=== PATIENT | male | born 1970 | race Caucasian/White ===

== ENCOUNTER 2019-11-30 12:51 | Emergency (ER) | payer BC ==
[2019-11-30 13:07] LABS: Glucose,Whole Blood 122 mg/dL (75-99)
[2019-11-30] MEDS ORDERED: SODIUM CHLORIDE 0.9% 1,000 ML IV STA (13:28)
--- NOTE | 2019-11-30 13:59 | CT ---
EXAMINATION TYPE: CT brain wo con for TPA DATE OF EXAM: 11/30/2019 COMPARISON: None HISTORY: 49-year-old male neurologic deficits, acute stroke suspected, CODE STROKE TECHNIQUE: Examination was done in axial plane without intravenous contrast. Coronal and sagittal r econstructions performed. CT DLP: 1099.4 mGycm Automated exposure control for dose reduction was used. FINDINGS: There is no evidence of acute intracranial hemorrhage, acute ischemic changes, mass, mass-effect, or extra-axial fluid collection. There is no effacement of cerebral sulci or basal subarachnoid cister ns. There is no hydrocephalus. There is no midline shift. Grace-white matter distinction is preserv ed. Paranasal sinuses and mastoid air cells well pneumatized. Orbits and globes are intact. IMPRESSION: No acute intracranial abnormality seen.
--- NOTE | 2019-11-30 14:04 | ED ---
General Adult HPI - General Chief complaint: Dizziness Stated complaint: dizzy, seeing double, naseous Time Seen by Provider: 11/30/19 13:22 Source: patient, RN notes reviewed, old records reviewed Mode of arrival: wheelchair Limitations: no limitations - History of Present Illness Initial comments: 49-year-old male presenting with sudden onsetthe patient, dizziness. Patient was at work prior to arrival. He suddenly developed double vision, dizziness and gait instability. He denied focal numbness or weakness. No headache. Patient reports a frontal headache for the past 2 days but this had resolved today without specific treatment. No history of TIA or CVA. No history of hypertension. Patient is otherwise healthy. Denies extremity weakness. Denies chest pain. Denies abdominal pain. Denies numbness. No slurred speech. - Related Data Home Medications Medication Instructions Recorded Confirmed No Known Home Medications 11/30/19 11/30/19 Allergies Allergy/AdvReac Type Severity Reaction Status Date / Time No Known Allergies Allergy Verified 11/30/19 14:45 Review of Systems ROS Statement: Those systems with pertinent positive or pertinent negative responses have been documented in the HPI. ROS Other: All systems not noted in ROS Statement are negative. Past Medical History Past Medical History: No Reported History History of Any Multi-Drug Resistant Organisms: None Reported Past Surgical History: Cholecystectomy Past Psychological History: No Psychological Hx Reported Smoking Status: Current some day smoker Past Alcohol Use History: Rare Past Drug Use History: None Reported General Exam Limitations: no limitations General appearance: alert, in no apparent distress Head exam: Present: atraumatic, normocephalic Eye exam: Present: normal appearance, PERRL, EOMI, nystagmus (Mild horizontal nystagmus) ENT exam: Present: normal exam Neck exam: Present: normal inspection. Absent: tenderness, meningismus Respiratory exam: Present: normal lung sounds bilaterally. Absent: respiratory distress, wheezes Cardiovascular Exam: Present: regular rate, normal rhythm GI/Abdominal exam: Present: soft. Absent: distended, tenderness, guarding Extremities exam: Present: normal inspection, normal capillary refill Back exam: Present: normal inspection Neurological exam: Present: alert, motor sensory deficit (Patient has left upper and left lower extremity ataxia, he has normal extraocular motions with double vision on the lateral visual field testing bilaterally.), other (Finger to nose ataxia on the left) Psychiatric exam: Present: normal affect, normal mood Skin exam: Present: warm, dry, intact. Absent: cyanosis, diaphoretic Course Vital Signs 11/30/19 11/30/19 11/30/19 13:01 13:30 13:45 Temperature 97.7 F 97.7 F 97.6 F Pulse Rate 71 80 67 Respiratory 20 17 19 Rate Blood Pressure 165/94 141/93 142/98 O2 Sat by Pulse 97 98 97 Oximetry 11/30/19 11/30/19 14:00 14:15 Temperature 97.8 F Pulse Rate 80 Respiratory 17 Rate Blood Pressure 135/95 139/91 O2 Sat by Pulse 97 Oximetry - Reevaluation(s) Reevaluation #1: 11/30/19 1340 Case discussed with stroke neurologist Dr. Del Toro , CTs have been reviewed, recommends IV fluid and aspirin and recommends transfer to [facility]. EKG Findings - EKG Comments: EKG Findings:: EKG: Normal sinus rhythm, rate 65, AK interval 144, QRS duration 76, QTC 391, T-wave inversion in lead [address] segment elevation Medical Decision Making - Medical Decision Making 49-year-old male presenting with sudden onset of her vision, dizziness, ataxia on the left. He has a mild horizontal nystagmus. He has ataxia in both the left leg and the left upper extremity. CT is performed which is negative for intracranial hemorrhage. Has a normal CBC, normal electrolytes. His EKG is normal sinus rhythm. Chest x-ray negative for focal pneumonia or acute findings. CT angiography is pending, images have been reviewed by stroke interventionalist Dr. Del Toro. CT angiography negative for acute occlusion or significant stenosis, no aneurysm. There is no neurology coverage at this institution, patient will require further evaluation and treatment by neurology. Patient agreeable with transfer, ER accepting physician at [facility] is Dr. Boone - Lab Data Result diagrams: 11/30/19 13:24 11/30/19 13:24 Lab Results 11/30/19 11/30/19 11/30/19 Range/Units 13:05 13:24 13:24 WBC 10.9 H (3.8-10.6) k/uL RBC 5.38 (4.30-5.90) m/uL Hgb 16.1 (13.0-17.5) gm/dL Hct 47.0 (39.0-53.0) % MCV 87.2 (80.0-100.0) fL MCH 30.0 (25.0-35.0) pg MCHC 34.4 (31.0-37.0) g/dL RDW 12.7 (11.5-15.5) % Plt Count 267 (150-450) k/uL Neutrophils % 79 % Lymphocytes % 15 % Monocytes % 5 % Eosinophils % 0 % Basophils % 0 % Neutrophils # 8.6 H (1.3-7.7) k/uL Lymphocytes # 1.7 (1.0-4.8) k/uL Monocytes # 0.5 (0-1.0) k/uL Eosinophils # 0.0 (0-0.7) k/uL Basophils # 0.1 (0-0.2) k/uL PT (9.0-12.0) sec INR (<1.2) APTT (22.0-30.0) sec Sodium 138 (137-145) mmol/L Potassium 4.3 (3.5-5.1) mmol/L Chloride 103 (98-107) mmol/L Carbon Dioxide 25 (22-30) mmol/L Anion Gap 10 mmol/L BUN 12 (9-20) mg/dL Creatinine 0.85 (0.66-1.25) mg/dL Est GFR (CKD-EPI)AfAm >90 (>60 ml/min/1.73 sqM) Est GFR (CKD-EPI)NonAf >90 (>60 ml/min/1.73 sqM) Glucose 115 H (74-99) mg/dL POC Glucose (mg/dL) 122 H (75-99) mg/dL POC Glu [employer] BAILEE Erick Smith Calcium 9.7 (8.4-10.2) mg/dL Total Bilirubin 0.8 (0.2-1.3) mg/dL AST 27 (17-59) U/L ALT 29 (4-49) U/L Alkaline Phosphatase 62 (38-126) U/L Total Creatine Kinase (55-170) U/L CK-MB (CK-2) (0.0-2.4) ng/mL CK-MB (CK-2) Rel Index Troponin I (0.000-0.034) ng/mL Total Protein 8.0 (6.3-8.2) g/dL Albumin 4.7 (3.5-5.0) g/dL 11/30/19 11/30/19 Range/Units 13:24 13:24 WBC (3.8-10.6) k/uL RBC (4.30-5.90) m/uL Hgb (13.0-17.5) gm/dL Hct (39.0-53.0) % MCV (80.0-100.0) fL MCH (25.0-35.0) pg MCHC (31.0-37.0) g/dL RDW (11.5-15.5) % Plt Count (150-450) k/uL Neutrophils % % Lymphocytes % % Monocytes % % Eosinophils % % Basophils % % Neutrophils # (1.3-7.7) k/uL Lymphocytes # (1.0-4.8) k/uL Monocytes # (0-1.0) k/uL Eosinophils # (0-0.7) k/uL Basophils # (0-0.2) k/uL PT 10.8 (9.0-12.0) sec INR 1.0 (<1.2) APTT 25.9 (22.0-30.0) sec Sodium (137-145) mmol/L Potassium (3.5-5.1) mmol/L Chloride (98-107) mmol/L Carbon Dioxide (22-30) mmol/L Anion Gap mmol/L BUN (9-20) mg/dL Creatinine (0.66-1.25) mg/dL Est GFR (CKD-EPI)AfAm (>60 ml/min/1.73 sqM) Est GFR (CKD-EPI)NonAf (>60 ml/min/1.73 sqM) Glucose (74-99) mg/dL POC Glucose (mg/dL) (75-99) mg/dL POC Glu [employer] ID Calcium (8.4-10.2) mg/dL Total Bilirubin (0.2-1.3) mg/dL AST (17-59) U/L ALT (4-49) U/L Alkaline Phosphatase (38-126) U/L Total Creatine Kinase 172 H (55-170) U/L CK-MB (CK-2) 2.5 H (0.0-2.4) ng/mL CK-MB (CK-2) Rel Index 1.5 Troponin I <0.012 (0.000-0.034) ng/mL Total Protein (6.3-8.2) g/dL Albumin (3.5-5.0) g/dL Critical Care Time Critical Care Time: Yes Total Critical Care Time: 35 Disposition Clinical Impression: Cerebrovascular accident (CVA), Ataxia, Double vision Disposition: OTHER INSTITUTION NOT DEFINED Condition: Stable Is patient prescribed a controlled substance at d/c from ED?: No Referrals: Hafsa Bishop DO [Primary Care Provider] - 1-2 days Time of Disposition: 14:57 - Out of Hospital Transfer - Req. Specs Out of Hospital Transfer - Requested Specifics: Other Emergency Center (Transferred to [facility])
[2019-11-30 14:08] LABS: ALT 29 U/L (4-49); AST 27 U/L (17-59); African American GFR (CKD) >90 (>60 ml/min/1.73 sqM); Albumin 4.7 g/dL (3.5-5.0); Alkaline Phosphatase 62 U/L (38-126); Anion Gap 10 mmol/L; Basophils # (A) 0.1 k/uL (0-0.2); Basophils % (A) 0 %; Blood Urea Nitrogen 12 mg/dL (9-20); Calcium 9.7 mg/dL (8.4-10.2); Carbon Dioxide 25 mmol/L (22-30); Chloride 103 mmol/L (98-107); Eosinophils % (A) 0 %; Glucose 115 mg/dL (74-99); HGB 16.1 gm/dL (13.0-17.5); Lymphocytes # (A) 1.7 k/uL (1.0-4.8); Lymphocytes % (A) 15 %; MCHC 34.4 g/dL (31.0-37.0); MCV 87.2 fL (80.0-100.0); Mean Platelet Volume 7.8; Monocytes # (A) 0.5 k/uL (0-1.0); Monocytes % (A) 5 %; Neutrophils # (A) 8.6 k/uL (1.3-7.7); Neutrophils % (A) 79 %; Non-African American GFR(CKD) >90 (>60 ml/min/1.73 sqM); Platelet Count 267 k/uL (150-450); Potassium 4.3 mmol/L (3.5-5.1); RBC 5.38 m/uL (4.30-5.90); RDW 12.7 % (11.5-15.5); Sodium 138 mmol/L (137-145); Total Bilirubin 0.8 mg/dL (0.2-1.3); WBC 10.9 k/uL (3.8-10.6)
[2019-11-30] MEDS ORDERED: ASPIRIN 325 MG TAB PO STA (14:10)
[2019-11-30] MEDS ORDERED: SODIUM CHLORIDE 0.9% 1,000 ML IV ONE (14:10)
[2019-11-30 14:17] LABS: Partial Thromboplastin Time 25.9 sec (22.0-30.0); Prothrombin Time 10.8 sec (9.0-12.0)
--- NOTE | 2019-11-30 14:21 | XR ---
EXAMINATION TYPE: XR chest 2V DATE OF EXAM: 11/30/2019 COMPARISON: None HISTORY: 49-year-old male confusion, altered mental status TECHNIQUE: PA and lateral views FINDINGS: Heart normal size. Aorta and pulmonary vasculature within normal limits. Mild interstitial prominence has a chronic appearance. No consolidation or pleural effusion. IMPRESSION: Interstitial prominence which may be chronic. Correlate for possible bronchitis or asthma. Otherwise, no acute process.
[2019-11-30 14:24] LABS: Creatine Kinase 172 U/L (55-170)
[2019-11-30 14:36] LABS: Creatine Kinase MB 2.5 ng/mL (0.0-2.4); Troponin I <0.012 ng/mL (0.000-0.034)
--- NOTE | 2019-11-30 14:58 | CT ---
EXAMINATION TYPE: CT angio head neck DATE OF EXAM: 11/30/2019 COMPARISON: Brain same day HISTORY: 49-year-old male Dizzy, seeing double and nauseous TECHNIQUE: Contiguous axial scanning of the head and neck performed with IV Contrast, patient injecte d with 65 ml mL of Isovue 370. Coronal/sagittal MIP reconstructions performed. 3-D reconstructions ge nerated on a dedicated independent workstation. CT DLP: 736.6 mGycm Automated exposure control for dose reduction was used. FINDINGS: Neck: Dependent atelectasis. Conventional arch vessel branching anatomy. Patent bilateral vertebral arteries. The bilateral common and internal carotid arteries are also normal and patent. Calcifications at the bilateral palatine tonsils suggesting sequela of prior infection. Brain: The vertebral and basilar arteries are patent. Internal carotid arteries are patent without any significant narrowing. Remainder of anterior and posterior circulation appear patent. No aneurysmal change is seen. IMPRESSION: 1. NECK: WIDELY PATENT CAROTID AND VERTEBRAL ARTERIES OF THE NECK. 2. BRAIN: NO LARGE VESSEL INTRACRANIAL ARTERIAL OCCLUSION OR ANEURYSMAL CHANGE SEEN.
[2019-11-30 15:48] VITALS: BP 122/84; PULSE 72; RESP 18; TEMP 98
== END 2019-11-30 16:02 | disposition short-term general hospital (02) ==
LOC: EC 12:51
DX: I63.9 Cerebral infarction, unspecified (principal); H53.2 Diplopia; R27.0 Ataxia, unspecified; H55.00 Unspecified nystagmus; F17.200 Nicotine dependence, unspecified, uncomplicated; Z53.8 Procedure and treatment not carried out for other reasons
CPT/HCPCS: 36415; 93005; 80053; 82550; 82553; 84484; 85025; 85610; 85730; 71046; 70496; 70450; 70498; 99291; 96360; 96361; Q9967

== ENCOUNTER → 2020-11-01 | Outpatient (CLI) | payer BC | END | disposition home or self-care (01) | LOC: LABWHC1 11:20 | PROVIDERS: ATTEND Psychiatry & Neurology Neurology | DX: G35 Multiple sclerosis (principal); E53.8 Deficiency of other specified B group vitamins | CPT/HCPCS: 36415; 82607 ==

== ENCOUNTER → 2021-07-26 | Outpatient (CLI) | payer BC ==
[2021-07-27 18:27] LABS: Immunoglobulin E 23.3 IU/mL (0.00-114.00)
[2021-07-30 12:02] LABS: Immunoglobulin M 55.8 mg/dL (40.0-280.0)
== END | disposition home or self-care (01) ==
LOC: LABWHC1 12:03
PROVIDERS: ATTEND Physician Assistant
DX: E53.8 Deficiency of other specified B group vitamins (principal); H53.2 Diplopia; G35 Multiple sclerosis
CPT/HCPCS: 36415; 82607; 82784; 82785

== ENCOUNTER 2022-07-27 11:39 | Emergency (ER) | payer BC ==
[2022-07-27 11:57] VITALS: BP 120/76; RESP 16; TEMP 98.2
[2022-07-27] MEDS ORDERED: MORPHINE SULFATE 2 MG/ML SYRINGE IM STA (12:21)
[2022-07-27 12:34] VITALS: PULSE 60
--- NOTE | 2022-07-27 12:36 | XR ---
EXAMINATION TYPE: XR knee complete RT DATE OF EXAM: 07/27/2022 12:29 PM INDICATION: Patient age:Male; 52 years old; Reason for study: pain; PHH. COMPARISON: None. TECHNIQUE: The Right knee(s) was examined in 3 projections. Frontal, lateral and oblique. FINDINGS: No evidence of any acute osseous pathology or joint space narrowing. No soft tissue edema . Small suprapatellar joint effusion. IMPRESSION: 1. No acute osseous pathology. 2. Small suprapatellar joint effusion.
--- NOTE | 2022-07-27 13:06 | US ---
EXAMINATION TYPE: US venous doppler duplex LE RT DATE OF EXAM: 07/27/2022 12:55 PM COMPARISON: NONE CLINICAL HISTORY: pain. Pain fell. SIDE PERFORMED: Right TECHNIQUE: The lower extremity deep venous system is examined utilizing real time linear array sonog handy with graded compression, doppler sonography and color-flow sonography. VESSELS IMAGED: Common Femoral Vein Deep Femoral Vein Greater Saphenous Vein * Femoral Vein Popliteal Vein Small Saphenous Vein * Proximal Calf Veins (* superficial vessels) Grayscale, color doppler, spectral doppler imaging performed of the deep veins of the right lower ext remity. There is normal flow, compressibility, vascular waveforms. Right Leg: Negative for DVT IMPRESSION: No deep venous thrombosis of the right lower extremity.
--- NOTE | 2022-07-27 13:57 | ED ---
Lower Extremity Injury HPI - General Chief Complaint: Extremity Injury, Lower Stated Complaint: fall, rt knee injury Time Seen by Provider: 07/27/22 12:00 Source: patient Mode of arrival: wheelchair Limitations: no limitations - History of Present Illness Initial Comments: Patient is a 52-year-old male presenting with chief complaint of right knee and calf pain. Patient tripped yesterday injuring the knee. Admits to some swelling, pain is now going down into the calf. No numbness or tingling. Patient has some limited range of motion of the knee, full range of motion at the ankle. Some calf tenderness. No redness or warmth. No red streaking, fever, chills, nausea, vomiting. - Related Data Home Medications Medication Instructions Recorded Confirmed Acetaminophen [Tylenol] 325 mg PO Q4H PRN 11/20/21 11/22/21 Ofatumumab [Kesimpta Pen] 20 mg SQ Q30D 11/20/21 11/22/21 Omeprazole [PriLOSEC] 20 mg PO [id number] 11/20/21 11/22/21 Allergies Allergy/AdvReac Type Severity Reaction Status Date / Time No Known Allergies Allergy Verified 07/27/22 11:57 Review of Systems ROS Statement: Those systems with pertinent positive or pertinent negative responses have been documented in the HPI. ROS Other: All systems not noted in ROS Statement are negative. Past Medical History Past Medical History: GERD/Reflux Additional Past Medical History / Comment(s): Has MS History of Any Multi-Drug Resistant Organisms: None Reported Past Surgical History: Cholecystectomy Past Anesthesia/Blood Transfusion Reactions: No Reported Reaction Past Psychological History: No Psychological Hx Reported Smoking Status: Former smoker Past Alcohol Use History: Occasional Past Drug Use History: None Reported - Past Family History Mother Family Medical History: No Reported History General Exam Limitations: no limitations General appearance: alert, in no apparent distress Head exam: Present: atraumatic, normocephalic, normal inspection Eye exam: Present: normal appearance, EOMI. Absent: scleral icterus, per iorbital swelling Neck exam: Present: normal inspection Extremities exam: Present: normal capillary refill. Absent: pedal edema Right Knee exam: Present: tenderness, swelling. Absent: full ROM, erythema Lower Leg exam: Present: tenderness, Homans' sign. Absent: erythema Neurovascular tendon exam: Present: no vascular compromise. Absent: pulse deficit, motor deficit, sensory deficit Neurological exam: Present: alert, oriented X3, CN II-XII intact Psychiatric exam: Present: normal affect, normal mood Skin exam: Present: warm, dry, intact, normal color. Absent: rash Course Vital Signs 07/27/22 07/27/22 11:55 12:34 Temperature 98.2 F Pulse Rate 68 60 Respiratory 16 Rate Blood Pressure 120/76 O2 Sat by Pulse 99 98 Oximetry Medical Decision Making - Medical Decision Making Patient is a 52-year-old male presenting with chief complaint of right knee and calf pain. Patient tripped yesterday causing injury to the knee. When he woke up today he was having calf pain. On examination there is tenderness to the knee in the posterior calf. Patient has limited range of motion secondary to pain. No erythema or warmth. No fever or chills. X-ray shows no fracture or dislocation. Ultrasound shows no evidence of DVT. Patient is placed in the immobilizer and provided with crutches, instructed to follow-up with orthopedics. Patient is an established patient of Dr. Franks. Educated on supportive treatment with rest, ice, compression, elevation and alternating Motrin and Tylenol. Follow-up with PCP. Report back to ER with any new or worsening symptoms. Discussed return parameters and answered all questions. Patient conveyed verbal understanding and agreed to the plan. I discussed this case in detail with my attending Dr. No Disposition Clinical Impression: Knee sprain Disposition: HOME SELF-CARE Condition: Good Instructions (If sedation given, give patient instructions): Knee Sprain (ED) Additional Instructions: Follow-up with PCP and orthopedics. Report back to ER with any new or worsening symptoms. Utilize a knee immobilizer and crutches. Take Motrin and Tylenol as needed for pain control. Rest, ice, elevate the knee whenever possible. Ice for 15 minutes at a time, do not place ice directly on her skin. Is patient prescribed a controlled substance at d/c from ED?: No Referrals: Hafsa Bishop DO [Primary Care Provider] - 1-2 days Gaurav Franks DO [Doctor of Osteopathic Medicine] - 1-2 days Time of Disposition: 13:58
== END 2022-07-27 15:15 | disposition home or self-care (01) ==
LOC: EC 11:39
DX: S83.91XA Sprain of unspecified site of right knee, initial encounter (principal); K21.9 Gastro-esophageal reflux disease without esophagitis; Z87.891 Personal history of nicotine dependence; Z79.899 Other long term (current) drug therapy; W01.0XXA Fall on same level from slipping, tripping and stumbling without subsequent striking against object, initial encounter
CPT/HCPCS: 73562; 93971; 99284; 96372; L1830; J2270